=== PATIENT | male | born 1950 | race Caucasian/White ===

== ENCOUNTER 2020-01-28 16:04 | Emergency (ER) | payer MEDICARE ==
[2020-01-28 16:51] VITALS: BP 125/82; PULSE 90
[2020-01-28] MEDS ORDERED: Metoclopramide 10 MG/2 ML SDV IVPUSH ONE (16:56)
[2020-01-28] MEDS ORDERED: Dextrose 5%-0.9% NaCl 1,000 ML IV SCH (16:56)
--- NOTE | 2020-01-28 17:40 | EDM.PDOC ---
ED HPI GENERAL MEDICAL PROBLEM - General Chief Complaint: Respiratory Problem Stated Complaint: SORE THROAT,DIARRHEA,SOB,VOMITING Time Seen by Provider: 01/28/20 16:46 Source of Information: Reports: Patient, RN Notes Reviewed History Limitations: Reports: No Limitations - History of Present Illness INITIAL COMMENTS - FREE TEXT/NARRATIVE: Patient is a 69-year-old male who presents to the ED for evaluation of his multiple symptoms. Patient notes he has been sick for around 3 days now, he did go to a [facility] lab testing yesterday, and he is still awaiting his state results. He has sore throat, cough, shortness of breath, has had some diarrhea along with some nausea and vomiting. He states that he has lost his taste of sense or smell as well. He only vomited once today, and he states his diarrhea is very frequent and water life. He states he has not really had much of an appetite. He does complain of all over body aches. He has not had a fever at home, and O2 sats are 95% on room air, he has not tachypneic, temperature is 97.6 F, and his pulse rate is 90 bpm with a blood pressure of 125/82. He is not dizzy or lightheaded with positional change. His regular provider is Mariana Lee through the [facility]. Treatments YARN SPOOLER: Reports: Other (see below) Other Treatments YARN SPOOLER: none Generalized Pain Score (Numeric/FACES): 7 - Related Data Allergies Allergy/AdvReac Type Severity Reaction Status Date / Time niacin Allergy Itching Verified 06/02/15 10:05 [From Niaspan Extended-Release] Penicillins Allergy Hives Verified 06/02/15 10:05 tramadol Allergy Hives Verified 06/02/15 10:05 venom-honey bee Allergy Airway Verified 06/02/15 10:05 [bee venom (honey bee)] Tightness Home Meds: Home Meds Gabapentin [Neurontin] 300 mg PO TID 04/13/15 [History] Lisinopril 5 mg PO DAILY 04/13/15 [History] Pitavastatin [Livalo] 2 mg PO DAILY 04/13/15 [History] Ubidecarenone [Coq-10] 200 mg PO DAILY 04/13/15 [History] glyBURIDE [Glyburide] 2.5 mg PO DAILY 04/13/15 [History] Calcium Carb/D3/Magnesium/Zinc [Leonard Mag Zinc + D Tablet] 2 each PO DAILY 06/01/15 [History] Multivit-Minerals/FA/Lycopene [One Daily Men's Health Tablet] 2 each PO DAILY 06/01/15 [History] Zolpidem Tartrate [Ambien] 1 - 2 tab PO BEDTIME PRN 06/01/15 [History] Cyclobenzaprine [Flexeril] 10 mg PO Q8H PRN #40 tablet 06/02/15 [Rx] metFORMIN [Glucophage XR] 500 mg PO BID 01/28/20 [History] Past Medical History Other HEENT History: Loss of L labrynthine reactivity, 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, eye surgery Cardiovascular History: Reports: Heart Murmur, High Cholesterol Genitourinary History: Reports: Renal Calculus Other Genitourinary History: erectile dysfunction Musculoskeletal History: Reports: Osteoarthritis Other Musculoskeletal History: blunt trauma to thigh, osteoarthritis to bilat feet, 12 hand surgeries, bilateral 5th toe spur resections, L knee arthroscopy, multiple low back surgeries, rotator cuff repair Neurological History: Reports: Headaches, Chronic, Vertigo Other Neuro History: ataxia, insomnia, peripheral sensory neuropathy Endocrine/Metabolic History: Reports: Diabetes, Type II Hematologic History: Reports: Hemochromatosis - Past Surgical History GI Surgical History: Reports: Appendectomy, Colonoscopy, EGD Social & Family History - Tobacco Use Smoking Status *Q: Never Smoker - Caffeine Use Caffeine Use: Reports: Coffee, Tea - Recreational Drug Use Recreational Drug Use: No ED ROS GENERAL - Review of Systems Review Of Systems: Comprehensive ROS is negative, except as noted in HPI. ED EXAM, GENERAL - Physical Exam Exam: See Below Exam Limited By: No Limitations General Appearance: Alert, WD/WN, No Apparent Distress Respiratory/Chest: No Respiratory Distress, Lungs Clear, Normal Breath Sounds, No Accessory Muscle Use, Chest Non-Tender Cardiovascular: Normal Peripheral Pulses, Regular Rate, Rhythm, No Murmur GI/Abdominal: Normal Bowel Sounds, Soft, Non-Tender, No Distention, No Mass Extremities: Normal Inspection, Normal Capillary Refill Neurological: Alert, Oriented, Normal Cognition, No Motor/Sensory Deficits Psychiatric: Normal Affect, Normal Mood Skin Exam: Warm, Dry, Intact, Normal Color, No Rash EKG INTERPRETATION EKG Date: 01/28/20 Time: 17:15 Rhythm: NSR Rate (Beats/Min): 86 [place]: Normal P-Wave: Present QRS: Normal ST-T: Normal QT: Normal EKG Interpretation Comments: No obvious ischemia or acute ST changes noted, reviewed by myself and Dr. oRwland. Course - Vital Signs Last Recorded V/S: Last Vital Signs Temp 97.6 F 01/28/20 16:50 Pulse 90 01/28/20 16:50 Resp 20 01/28/20 16:50 BP 125/82 01/28/20 16:50 Pulse Ox 95 01/28/20 16:50 - Orders/Labs/Meds Orders: Active Orders 24 hr Category Date Time Status EKG Documentation Completion [RC] STAT Care 01/28/20 16:55 Ordered Chest 1V Frontal [CR] Stat Exams 01/28/20 16:55 Once Dextrose 5%-0.9% NaCl [Dextrose 5%-Normal Saline] 1,000 Med 01/28/20 16:56 Ordered ml IV ASDIRECTED Medication Orders Dextrose/Sodium Chloride (Dextrose 5%-Normal Saline) 1,000 mls @ 999 mls/hr IV ASDIRECTED JANE Last Admin: 01/28/20 17:41 Dose: 999 mls/hr Documented by: ARTHUR Labs: Laboratory Tests 01/28/20 01/28/20 01/28/20 Range/Units 17:28 17:28 17:28 WBC 4.17 L (4.23-9.07) K/mm3 RBC 3.68 L (4.63-6.08) M/mm3 Hgb 11.2 L D (13.7-17.5) gm/dl Hct 32.7 L (40.1-51.0) % MCV 88.9 (79.0-92.2) fl MCH 30.4 (25.7-32.2) pg MCHC 34.3 (32.2-35.5) g/dl RDW Std Deviation 40.5 (35.1-43.9) fL Plt Count 192 (163-337) K/mm3 MPV 10.2 (9.4-12.3) fl Neutrophils % (Manual) 53 (40-60) % Band Neutrophils % 2 (0-10) % Lymphocytes % (Manual) 40 (20-40) % Atypical Lymphs % 0 % Monocytes % (Manual) 4 (2-10) % Eosinophils % (Manual) 1 (0.8-7.0) % Basophils % (Manual) 0 L (0.2-1.2) Platelet Estimate Adequate RBC Morph Comment Normal PT 10.7 (9.7-11.7) SECONDS INR 1.00 APTT 32 H (22-31) SECONDS D-Dimer, Quantitative 0.86 H (0.19-0.50) mg/L Sodium (136-145) mEq/L Potassium (3.5-5.1) mEq/L Chloride (98-107) mEq/L Carbon Dioxide (21-32) mEq/L Anion Gap (5-15) BUN (7-18) mg/dL Creatinine (0.7-1.3) mg/dL Est Cr Clr Drug Dosing mL/min Estimated GFR (MDRD) (>60) mL/min BUN/Creatinine Ratio (14-18) Glucose (80-115) mg/dL Lactic Acid (0.4-2.0) mmol/L Calcium (8.5-10.1) mg/dL Magnesium (1.8-2.4) mg/dl Ferritin (26-388) ng/ml Total Bilirubin (0.2-1.0) mg/dL AST (15-37) U/L ALT (16-63) U/L Alkaline Phosphatase (46-116) U/L Lactate Dehydrogenase (85-227) U/L Troponin I (0.00-0.056) ng/mL C-Reactive Protein 9.5 H* (<1.0) mg/dL NT-Pro-B Natriuret Pep (0-125) pg/mL Total Protein (6.4-8.2) g/dl Albumin (3.4-5.0) g/dl Globulin gm/dL Albumin/Globulin Ratio (1-2) 01/28/20 01/28/20 01/28/20 Range/Units 17:28 17:28 17:28 WBC (4.23-9.07) K/mm3 RBC (4.63-6.08) M/mm3 Hgb (13.7-17.5) gm/dl Hct (40.1-51.0) % MCV (79.0-92.2) fl MCH (25.7-32.2) pg MCHC (32.2-35.5) g/dl RDW Std Deviation (35.1-43.9) fL Plt Count (163-337) K/mm3 MPV (9.4-12.3) fl Neutrophils % (Manual) (40-60) % Band Neutrophils % (0-10) % Lymphocytes % (Manual) (20-40) % Atypical Lymphs % % Monocytes % (Manual) (2-10) % Eosinophils % (Manual) (0.8-7.0) % Basophils % (Manual) (0.2-1.2) Platelet Estimate RBC Morph Comment PT (9.7-11.7) SECONDS INR APTT (22-31) SECONDS D-Dimer, Quantitative (0.19-0.50) mg/L Sodium 137 (136-145) mEq/L Potassium 3.2 L (3.5-5.1) mEq/L Chloride 102 (98-107) mEq/L Carbon Dioxide 20 L (21-32) mEq/L Anion Gap 18.2 H (5-15) BUN 18 (7-18) mg/dL Creatinine 1.6 H (0.7-1.3) mg/dL Est Cr Clr Drug Dosing 49.17 mL/min Estimated GFR (MDRD) 43 (>60) mL/min BUN/Creatinine Ratio 11.3 L (14-18) Glucose 239 H (80-115) mg/dL Lactic Acid (0.4-2.0) mmol/L Calcium 8.6 (8.5-10.1) mg/dL Magnesium 1.5 L (1.8-2.4) mg/dl Ferritin 561 H (26-388) ng/ml Total Bilirubin 0.5 (0.2-1.0) mg/dL AST 98 H (15-37) U/L ALT 96 H (16-63) U/L Alkaline Phosphatase 80 (46-116) U/L Lactate Dehydrogenase 220 (85-227) U/L Troponin I < 0.017 (0.00-0.056) ng/mL C-Reactive Protein (<1.0) mg/dL NT-Pro-B Natriuret Pep 134 H (0-125) pg/mL Total Protein 7.4 (6.4-8.2) g/dl Albumin 3.1 L (3.4-5.0) g/dl Globulin 4.3 gm/dL Albumin/Globulin Ratio 0.7 L (1-2) 01/28/20 Range/Units 17:28 WBC (4.23-9.07) K/mm3 RBC (4.63-6.08) M/mm3 Hgb (13.7-17.5) gm/dl Hct (40.1-51.0) % MCV (79.0-92.2) fl MCH (25.7-32.2) pg MCHC (32.2-35.5) g/dl RDW Std Deviation (35.1-43.9) fL Plt Count (163-337) K/mm3 MPV (9.4-12.3) fl Neutrophils % (Manual) (40-60) % Band Neutrophils % (0-10) % Lymphocytes % (Manual) (20-40) % Atypical Lymphs % % Monocytes % (Manual) (2-10) % Eosinophils % (Manual) (0.8-7.0) % Basophils % (Manual) (0.2-1.2) Platelet Estimate RBC Morph Comment PT (9.7-11.7) SECONDS INR APTT (22-31) SECONDS D-Dimer, Quantitative (0.19-0.50) mg/L Sodium (136-145) mEq/L Potassium (3.5-5.1) mEq/L Chloride (98-107) mEq/L Carbon Dioxide (21-32) mEq/L Anion Gap (5-15) BUN (7-18) mg/dL Creatinine (0.7-1.3) mg/dL Est Cr Clr Drug Dosing mL/min Estimated GFR (MDRD) (>60) mL/min BUN/Creatinine Ratio (14-18) Glucose (80-115) mg/dL Lactic Acid 1.4 (0.4-2.0) mmol/L Calcium (8.5-10.1) mg/dL Magnesium (1.8-2.4) mg/dl Ferritin (26-388) ng/ml Total Bilirubin (0.2-1.0) mg/dL AST (15-37) U/L ALT (16-63) U/L Alkaline Phosphatase (46-116) U/L Lactate Dehydrogenase (85-227) U/L Troponin I (0.00-0.056) ng/mL C-Reactive Protein (<1.0) mg/dL NT-Pro-B Natriuret Pep (0-125) pg/mL Total Protein (6.4-8.2) g/dl Albumin (3.4-5.0) g/dl Globulin gm/dL Albumin/Globulin Ratio (1-2) Meds: Medications Generic Name Dose Route Start Last Admin Trade Name Freq PRN Reason Stop Dose Admin Dextrose/Sodium Chloride 1,000 mls @ 999 mls/hr 01/28/20 16:56 01/28/20 17:41 Dextrose 5%-Normal Saline IV 999 mls/hr ASDIRECTED JANE Administration Discontinued Medications Generic Name Dose Route Start Last Admin Trade Name Freq PRN Reason Stop Dose Admin Metoclopramide HCl 10 mg 01/28/20 16:56 01/28/20 17:41 Reglan IVPUSH 01/28/20 16:57 10 mg ONETIME ONE Administration Potassium Chloride 40 meq 01/28/20 18:43 Klor-Con M20 PO 01/28/20 18:44 ONETIME ONE - Re-Assessments/Exams Free Text/Narrative Re-Assessment/Exam: 01/28/20 17:39 Patient presents to the ED for his COVID-like symptoms. His chest x-ray does demonstrate bibasilar consolidation, consistent with atelectasis, edema or pneumonia, and a small left pleural effusion. Due to his symptoms, I do highly suspect that this is the start of a COVID pneumonia. O2 sats are okay at this time on room air 95%. Labs are pending. EKG shows no acute ischemic changes. 01/28/20 18:44 Patient's white blood cell count is mildly low at 4.17, d-dimer is elevated at 0.86, potassium is mildly low at 3.2, creatinine elevated 1.6, GFR 43, glucose is mildly elevated at 239, lactic okay at 1.4 ferritin elevated at 516, mag low at 1.5, LDH elevated at 220, troponin undetectably low, CRP is elevated at 9.5. Based on these labs, I do again highly suspect COVID-19 as being what this gentleman is suffering from. Due to his diabetic status, elevated creatinine and GFR, I will not do the CTA today, he is not hypoxic, he is not tachycardic. The d-dimer is most likely elevated due to suspected COVID-19 infection. He will get 40 mEq p.o. potassium for his mildly low potassium at this time. Most of his metabolic abnormalities I believe are nutritional as he states he has lost a sense of taste or smell, so is not really been eating well. Departure - Departure Time of Disposition: 18:59 Disposition: Home, Self-Care 01 Condition: Good Clinical Impression: COVID-19 determined by clinical diagnostic criteria - Discharge Information *PRESCRIPTION DRUG MONITORING PROGRAM REVIEWED*: No *COPY OF PRESCRIPTION DRUG MONITORING REPORT IN PATIENT CONY: No Instructions: COVID-19: How to Protect Yourself and Others - [facility], Prevent the Spread of COVID-19 if You Are Sick - [facility] Referrals: Marilia Lee PA-C [Primary Care Provider] - Forms: ED Department Discharge Additional Instructions: You were seen in the ER today for ongoing and/or respiratory symptoms. Your chest x-ray showed a slight viral pneumonia at today's visit. Your oxygen levels were acceptable at 95-96% on room air. Please await your results from the [facility]; although you have been given a clinical diagnosis of COVID-19 by lab standards and your chest x-ray. We ask that you self-quarantine and limit your exposure to others until you receive your results from the [facility]. Please try to increase your oral fluid intake, and eat multiple small meals throughout the day, to keep yourself healthy. You need to keep yourself nourished in order to fight off this disease. You can try a liquid diet like gatorade/powerade as well to get your electrolytes. You may take 500 mg Tylenol every hours 6 hours for pain/fever relief. Do not exceed 4000 mg Tylenol in a 24-hour time span. However, running a fever is your body's natural response to illness, and it allows the body to develop antibodies to disease, we are recommending trying to limit the use of Tylenol as much as possible to allow your body's natural immune response. Recommend you obtain a pulse oximeter and monitor your oxygen levels at home, you should place the monitor on your finger, and sit in a calm quiet position for a few minutes and then record the number that is on the screen. If this consistently below 90% on room air without movement, this would be cause for concern to come back to the hospital for further management of your COVID-19. Sepsis Event Note (ED) - Evaluation Sepsis Screening Result: No Definite Risk - Focused Exam Vital Signs: Vital Signs Temp Pulse Resp BP Pulse Ox 01/28/20 16:50 97.6 F 90 20 125/82 95 - My Orders Last 24 Hours: My Active Orders 01/28/20 16:55 EKG Documentation Completion [RC] STAT Chest 1V Frontal [CR] Stat 01/28/20 16:56 Dextrose 5%-0.9% NaCl [Dextrose 5%-Normal Saline] 1,000 ml IV ASDIRECTED - Assessment/Plan Last 24 Hours: My Active Orders 01/28/20 16:55 EKG Documentation Completion [RC] STAT Chest 1V Frontal [CR] Stat 01/28/20 16:56 Dextrose 5%-0.9% NaCl [Dextrose 5%-Normal Saline] 1,000 ml IV ASDIRECTED
[2020-01-28] MEDS ORDERED: Potassium Chloride 20 MEQ Tab.ER PO ONE (18:43)
== END 2020-01-28 19:30 | disposition home or self-care (01) ==
LOC: JD.ED 16:04
DX: U07.1 COVID-19 (principal); E11.42 Type 2 diabetes mellitus with diabetic polyneuropathy; E78.00 Pure hypercholesterolemia, unspecified; Z88.8 Allergy status to other drugs, medicaments and biological substances; Z88.5 Allergy status to narcotic agent; Z88.0 Allergy status to penicillin; Z79.84 Long term (current) use of oral hypoglycemic drugs; Z79.899 Other long term (current) drug therapy; Z91.030 Bee allergy status
CPT/HCPCS: 36415; 71045; 80053; 82728; 83605; 83615; 83735; 83880; 84484; 85007; 85027; 85379; 85610; 85730; 86140; 93005; 96361; 96374; 99285; A9270; J2765; J7042; 93010; 99283

== ENCOUNTER 2020-02-01 11:47 | Emergency (ER) | payer MEDICARE ==
[2020-02-01] MEDS ORDERED: Sodium Chloride 0.9% 10 ML Syringe FLUSH PRN ×2 (12:23→15:03)
[2020-02-01] MEDS ORDERED: Ondansetron 4 MG/2 ML SDV IVPUSH ONE (12:25)
[2020-02-01] MEDS ORDERED: Iopamidol 755 Mg/ML 100 ML Bottle IVPUSH ONE (15:03)
--- NOTE | 2020-02-01 15:05 | EDM.PDOC ---
ED HPI GENERAL MEDICAL PROBLEM - General Chief Complaint: Respiratory Problem Stated Complaint: [facility] Time Seen by Provider: 02/01/20 11:55 Source of Information: Reports: Patient, EMS History Limitations: Reports: No Limitations - History of Present Illness INITIAL COMMENTS - FREE TEXT/NARRATIVE: The patient presents by [facility] for shortness of breath, cough, nausea, vomiting and diarrhea. He is COVID 19 positive as of last week. He was seen in the ER 4 days ago and he was doing okay then with good oxygen saturations. When he went home, he developed the nausea, vomiting and diarrhea. He says he cannot keep anything down. He has a slight cough still. He has no fever, chills, chest pain, or dysuria. He has diabetes type II, hypercholester olemia, and heart murmur. Onset: Gradual Duration: Week(s): (1) Improves with: Reports: None Worsens with: Reports: None Associated Symptoms: Reports: Cough, Nausea/Vomiting, Shortness of Breath. Denies: Chest Pain, Fever/Chills, Headaches - Related Data Allergies Allergy/AdvReac Type Severity Reaction Status Date / Time niacin Allergy Itching Verified 02/01/20 11:59 [From Niaspan Extended-Release] Penicillins Allergy Hives Verified 02/01/20 11:59 tramadol Allergy Hives Verified 02/01/20 11:59 venom-honey bee Allergy Airway Verified 02/01/20 11:59 [bee venom (honey bee)] Tightness Home Meds: Home Meds Gabapentin [Neurontin] 600 mg PO TID 04/13/15 [History] Lisinopril 5 mg PO DAILY 04/13/15 [History] Pitavastatin [Livalo] 2 mg PO DAILY 04/13/15 [History] Ubidecarenone [Coq-10] 200 mg PO DAILY 04/13/15 [History] glyBURIDE [Glyburide] 2.5 mg PO DAILY 04/13/15 [History] Calcium Carb/D3/Magnesium/Zinc [Leonard Mag Zinc + D Tablet] 2 each PO DAILY 06/01/15 [History] Multivit-Minerals/FA/Lycopene [One Daily Men's Health Tablet] 2 each PO DAILY 06/01/15 [History] Zolpidem Tartrate [Ambien] 1 - 2 tab PO BEDTIME PRN 06/01/15 [History] Cyclobenzaprine [Flexeril] 10 mg PO Q8H PRN #40 tablet 06/02/15 [Rx] metFORMIN [Glucophage XR] 500 mg PO BID 01/28/20 [History] Ondansetron [Zofran ODT] 4 mg PO Q6H PRN #20 tab.dis 02/01/20 [Rx] dexAMETHasone [Dexamethasone] 6 mg PO DAILY #7 tab 02/01/20 [Rx] Past Medical History Other HEENT History: Loss of L labrynthine reactivity, 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, eye surgery Cardiovascular History: Reports: Heart Murmur, High Cholesterol Genitourinary History: Reports: Renal Calculus Other Genitourinary History: erectile dysfunction Musculoskeletal History: Reports: Osteoarthritis Other Musculoskeletal History: blunt trauma to thigh, osteoarthritis to bilat feet, 12 hand surgeries, bilateral 5th toe spur resections, L knee arthroscopy, multiple low back surgeries, rotator cuff repair Neurological History: Reports: Headaches, Chronic, Vertigo Other Neuro History: ataxia, insomnia, peripheral sensory neuropathy Endocrine/Metabolic History: Reports: Diabetes, Type II Hematologic History: Reports: Hemochromatosis - Infectious Disease History Infectious Disease History: Reports: Novel Coronavirus - Past Surgical History GI Surgical History: Reports: Appendectomy, Colonoscopy, EGD Social & Family History - Tobacco Use Smoking Status *Q: Never Smoker - Caffeine Use Caffeine Use: Reports: Coffee, Tea - Recreational Drug Use Recreational Drug Use: No ED ROS GENERAL - Review of Systems Review Of Systems: See Below Constitutional: Reports: Malaise, Weakness, Fatigue. Denies: Fever, Chills HEENT: Reports: No Symptoms Respiratory: Reports: Shortness of Breath, Cough Cardiovascular: Reports: No Symptoms Endocrine: Reports: No Symptoms GI/Abdominal: Reports: Diarrhea, Nausea, Vomiting. Denies: Abdominal Pain ED EXAM, GENERAL - Physical Exam Exam: See Below Exam Limited By: No Limitations General Appearance: Alert, No Apparent Distress Ears: Normal External Exam Nose: Normal Inspection Head: Atraumatic, Normocephalic Neck: Normal Inspection Respiratory/Chest: No Respiratory Distress, Lungs Clear, Normal Breath Sounds Cardiovascular: Regular Rate, Rhythm, No Edema, No Murmur GI/Abdominal: Soft, Non-Tender, No Organomegaly, No Mass Back Exam: Normal Inspection Extremities: Normal Inspection Neurological: Alert, Oriented, No Motor/Sensory Deficits Course - Vital Signs Last Recorded V/S: Last Vital Signs Temp 98.2 F 02/01/20 11:55 Pulse 54 L 02/01/20 15:51 Resp 20 02/01/20 15:51 BP 118/71 02/01/20 15:51 Pulse Ox 98 02/01/20 15:51 - Orders/Labs/Meds Orders: Active Orders 24 hr Category Date Time Status Oxygen Therapy [RC] PRN Care 02/01/20 12:23 Active Peripheral IV Care [RC] . DIRECTED Care 02/01/20 12:24 Active Ang Chest [CT] Stat Exams 02/01/20 14:53 Taken CXR [Chest 1V Frontal] [CR] Stat Exams 02/01/20 12:25 Taken CULTURE BLOOD [BC] Stat Lab 02/01/20 12:46 Received CULTURE BLOOD [BC] Stat Lab 02/01/20 13:00 Received Sodium Chloride 0.9% [Normal Saline] 100 ml Med 02/01/20 15:15 Active IV ASDIRECTED Sodium Chloride 0.9% [Saline Flush] Med 02/01/20 12:23 Active 10 ml FLUSH ASDIRECTED PRN Sodium Chloride 0.9% [Saline Flush] Med 02/01/20 15:03 Active 10 ml FLUSH ONETIME PRN Blood Culture x2 Reflex Set [OM.PC] Stat Oth 02/01/20 12:24 Ordered Peripheral IV Insertion Adult [OM.PC] Stat Oth 02/01/20 12:23 Ordered Medication Orders Sodium Chloride (Normal Saline) 100 mls @ 75 mls/hr IV ASDIRECTED JANE Last Admin: 02/01/20 15:34 Dose: 75 mls/hr Documented by: ANDREA Sodium Chloride (Saline Flush) 10 ml FLUSH ASDIRECTED PRN PRN Reason: Keep Vein Open Last Admin: 02/01/20 12:51 Dose: 10 ml Documented by: HEIDI Sodium Chloride (Saline Flush) 10 ml FLUSH ONETIME PRN PRN Reason: IV FLUSH Last Admin: 02/01/20 15:34 Dose: 10 ml Documented by: ANDREA Labs: Laboratory Tests 02/01/20 02/01/20 02/01/20 Range/Units 12:46 12:46 12:46 WBC 5.56 (4.23-9.07) K/mm3 RBC 3.86 L (4.63-6.08) M/mm3 Hgb 11.9 L (13.7-17.5) gm/dl Hct 33.9 L (40.1-51.0) % MCV 87.8 (79.0-92.2) fl MCH 30.8 (25.7-32.2) pg MCHC 35.1 (32.2-35.5) g/dl RDW Std Deviation 40.6 (35.1-43.9) fL Plt Count 285 D (163-337) K/mm3 MPV 9.7 (9.4-12.3) fl Neut % (Auto) 68.1 H (34.0-67.9) % Lymph % (Auto) 21.8 (21.8-53.1) % Collier % (Auto) 7.2 (5.3-12.2) % Eos % (Auto) 2.0 (0.8-7.0) Baso % (Auto) 0.4 (0.1-1.2) % Neut # (Auto) 3.79 (1.78-5.38) K/mm3 Lymph # (Auto) 1.21 L (1.32-3.57) K/mm3 Collier # (Auto) 0.40 (0.30-0.82) K/mm3 Eos # (Auto) 0.11 (0.04-0.54) K/mm3 Baso # (Auto) 0.02 (0.01-0.08) K/mm3 Manual Slide Review Abnormal smear D-Dimer, Quantitative 1.51 H (0.19-0.50) mg/L Sodium 139 (136-145) mEq/L Potassium 3.0 L (3.5-5.1) mEq/L Chloride 103 (98-107) mEq/L Carbon Dioxide 23 (21-32) mEq/L Anion Gap 16.0 H (5-15) BUN 25 H (7-18) mg/dL Creatinine 1.2 (0.7-1.3) mg/dL Est Cr Clr Drug Dosing 65.56 mL/min Estimated GFR (MDRD) > 60 (>60) mL/min BUN/Creatinine Ratio 20.8 H (14-18) Glucose 250 H (80-115) mg/dL Lactic Acid (0.4-2.0) mmol/L Calcium 9.0 (8.5-10.1) mg/dL Magnesium 2.0 (1.8-2.4) mg/dl Ferritin (26-388) ng/ml Total Bilirubin 0.7 (0.2-1.0) mg/dL AST 90 H (15-37) U/L ALT 96 H (16-63) U/L Alkaline Phosphatase 90 (46-116) U/L Lactate Dehydrogenase 301 H (85-227) U/L Total Protein 8.0 (6.4-8.2) g/dl Albumin 3.0 L (3.4-5.0) g/dl Globulin 5.0 gm/dL Albumin/Globulin Ratio 0.6 L (1-2) Lipase 269 (73-393) U/L 02/01/20 02/01/20 Range/Units 12:46 12:46 WBC (4.23-9.07) K/mm3 RBC (4.63-6.08) M/mm3 Hgb (13.7-17.5) gm/dl Hct (40.1-51.0) % MCV (79.0-92.2) fl MCH (25.7-32.2) pg MCHC (32.2-35.5) g/dl RDW Std Deviation (35.1-43.9) fL Plt Count (163-337) K/mm3 MPV (9.4-12.3) fl Neut % (Auto) (34.0-67.9) % Lymph % (Auto) (21.8-53.1) % Collier % (Auto) (5.3-12.2) % Eos % (Auto) (0.8-7.0) Baso % (Auto) (0.1-1.2) % Neut # (Auto) (1.78-5.38) K/mm3 Lymph # (Auto) (1.32-3.57) K/mm3 Collier # (Auto) (0.30-0.82) K/mm3 Eos # (Auto) (0.04-0.54) K/mm3 Baso # (Auto) (0.01-0.08) K/mm3 Manual Slide Review D-Dimer, Quantitative (0.19-0.50) mg/L Sodium (136-145) mEq/L Potassium (3.5-5.1) mEq/L Chloride (98-107) mEq/L Carbon Dioxide (21-32) mEq/L Anion Gap (5-15) BUN (7-18) mg/dL Creatinine (0.7-1.3) mg/dL Est Cr Clr Drug Dosing mL/min Estimated GFR (MDRD) (>60) mL/min BUN/Creatinine Ratio (14-18) Glucose (80-115) mg/dL Lactic Acid 1.2 (0.4-2.0) mmol/L Calcium (8.5-10.1) mg/dL Magnesium (1.8-2.4) mg/dl Ferritin 872 H (26-388) ng/ml Total Bilirubin (0.2-1.0) mg/dL AST (15-37) U/L ALT (16-63) U/L Alkaline Phosphatase (46-116) U/L Lactate Dehydrogenase (85-227) U/L Total Protein (6.4-8.2) g/dl Albumin (3.4-5.0) g/dl Globulin gm/dL Albumin/Globulin Ratio (1-2) Lipase (73-393) U/L Meds: Medications Generic Name Dose Route Start Last Admin Trade Name Freq PRN Reason Stop Dose Admin Sodium Chloride 100 mls @ 75 mls/hr 02/01/20 15:15 02/01/20 15:34 Normal Saline IV 75 mls/hr ASDIRECTED JANE Administration Sodium Chloride 10 ml 02/01/20 12:23 02/01/20 12:51 Saline Flush FLUSH 10 ml ASDIRECTED PRN Administration Keep Vein Open Sodium Chloride 10 ml 02/01/20 15:03 02/01/20 15:34 Saline Flush FLUSH 10 ml ONETIME PRN Administration IV FLUSH Discontinued Medications Generic Name Dose Route Start Last Admin Trade Name Freq PRN Reason Stop Dose Admin Iopamidol 100 ml 02/01/20 15:03 02/01/20 15:33 Isovue-370 (76%) IVPUSH 02/01/20 15:04 100 ml ONETIME ONE Administration Ondansetron HCl 4 mg 02/01/20 12:25 02/01/20 12:52 Zofran IVPUSH 02/01/20 12:26 4 mg ONETIME ONE Administration - Re-Assessments/Exams Free Text/Narrative Re-Assessment/Exam: 02/01/20 15:06 I ordered an IV NS 1L bolus, zofran 4mg IV, labs, CXR and oxygen as needed. His WBC was normal. His Hgb was low at 11.9. His D-dimer is elevated at 1.51. His K is low at 3. His anion gap is elevated at 16. His glucose is 250. His lactic acid is normal at 1.2. His ferritin is elevated at 872. His AST is elevated at 90. His ALT is elevated at 94. His LDH is elevated at 301. His lipase is normal. His CXR shows worsening of bilateral pneumonia. 02/01/20 15:08 [address] have ordered a CT angio fo his chest. 02/01/20 16:[address] angio shows no pulmonary embolism present. Patchy peripheral airspace opacity concerning for multilobar pneumonia. Consider atypical/viral etiologies. Mild cardiomegaly and coronary atherosclerosis. Prominent bilateral hilar lymph nodes. These are likely reactive to the pulmonary process. Not mentioned avoce is a 0.4 X 0.3cm stone in the upper pole of the right kidney. No hydronephrosis is present. His oxygen saturations are good. He does not meet criteria at this point to be admitted. I will get him on some zofran for the nausea and vomiting and I will try some dexamethasone at home. Departure - Departure Time of Disposition: 16:20 Disposition: Home, Self-Care 01 Condition: Good Clinical Impression: COVID-19, Pneumonia due to COVID-19 virus - Discharge Information *PRESCRIPTION DRUG MONITORING PROGRAM REVIEWED*: Not Applicable *COPY OF PRESCRIPTION DRUG MONITORING REPORT IN PATIENT [place]: Not Applicable Prescriptions: dexAMETHasone [Dexamethasone] 6 mg PO DAILY #7 tab Ondansetron [Zofran ODT] 4 mg PO Q6H PRN #20 tab.dis PRN Reason: Nausea\vomiting Referrals: Marilia Lee PA-C [Primary Care Provider] - 1 Week Forms: ED Department Discharge Additional Instructions: Take zofran every 6 hours as needed for nausea and vomiting. Drink plenty of fluids. Take tylenol or motrin as needed for fever or pain. Take the dexamethasone daily. Please return if you are worse. Sepsis Event Note (ED) - Evaluation Sepsis Screening Result: No Definite Risk - Focused Exam Vital Signs: Vital Signs Temp Pulse Resp BP Pulse Ox Pulse Ox 02/01/20 15:51 54 L 20 118/71 98 02/01/20 12:31 96 02/01/20 11:55 98.2 F 60 18 125/85 96 - My Orders Last 24 Hours: My Active Orders 02/01/20 12:23 Oxygen Therapy [RC] PRN Sodium Chloride 0.9% [Saline Flush] 10 ml FLUSH ASDIRECTED PRN Peripheral IV Insertion Adult [OM.PC] Stat 02/01/20 12:24 Peripheral IV Care [RC] . DIRECTED Blood Culture x2 Reflex Set [OM.PC] Stat 02/01/20 12:25 CXR [Chest 1V Frontal] [CR] Stat 02/01/20 12:46 CULTURE BLOOD [BC] Stat 02/01/20 13:00 CULTURE BLOOD [BC] Stat 02/01/20 14:53 Ang Chest [CT] Stat 02/01/20 15:03 Sodium Chloride 0.9% [Saline Flush] 10 ml FLUSH ONETIME PRN 02/01/20 15:15 Sodium Chloride 0.9% [Normal Saline] 100 ml IV ASDIRECTED - Assessment/Plan Last 24 Hours: My Active Orders 02/01/20 12:23 Oxygen Therapy [RC] PRN Sodium Chloride 0.9% [Saline Flush] 10 ml FLUSH ASDIRECTED PRN Peripheral IV Insertion Adult [OM.PC] Stat 02/01/20 12:24 Peripheral IV Care [RC] . DIRECTED Blood Culture x2 Reflex Set [OM.PC] Stat 02/01/20 12:25 CXR [Chest 1V Frontal] [CR] Stat 02/01/20 12:46 CULTURE BLOOD [BC] Stat 02/01/20 13:00 CULTURE BLOOD [BC] Stat 02/01/20 14:53 Ang Chest [CT] Stat 02/01/20 15:03 Sodium Chloride 0.9% [Saline Flush] 10 ml FLUSH ONETIME PRN 02/01/20 15:15 Sodium Chloride 0.9% [Normal Saline] 100 ml IV ASDIRECTED
[2020-02-01] MEDS ORDERED: Sodium Chloride 0.9% 100 ML IV SCH (15:15)
[2020-02-01 15:52] VITALS: BP 118/71; PULSE 54
--- NOTE | 2020-03-02 10:39 | CR ---
PROCEDURE INFORMATION: Exam: XR Chest, 1 View Exam date and time: 02/01/2020 12:48 PM Age: 69 years old Clinical indication: Condition or disease; Patient HX: Covid, cough TECHNIQUE: Imaging protocol: XR of the chest Views: 1 view. COMPARISON: CR Chest 1V Frontal 01/28/2020 4:43 PM FINDINGS: Lungs: Bilateral ill-defined pulmonary opacities are present with a peripheral and basilar predominance. This would be compatible with the history of COVID-19. These opacities have worsened in the interval. Pleural space: No pleural effusion or pneumothorax. Heart/Mediastinum: The cardiac silhouette is not enlarged. The mediastinal contours are normal. Bones/joints: Old, healed right rib fractures. Fixation plate at the posterior right 6th rib. There are multilevel bridging osteophytes in the spine. IMPRESSION: Worsening of bilateral pneumonia. COMMENTS: The exam was performed on 02/01/2020 but only presented for FINAL interpretation today. Thank you for allowing us to participate in the care of your patient. Dictated and Authenticated by: Gareth Jones MD 03/01/2020 8:18 AM Central Time ([place] & [place]) RAJAT
--- NOTE | 2020-03-03 15:22 | CT ---
"PROCEDURE INFORMATION: Exam: CT Angiography Chest With Contrast Exam date and time: 02/01/2020 3:08 PM Age: 69 years old Clinical indication: Abnormal findings; Abnormal diagnostic tests; Elevated d- dimer TECHNIQUE: Imaging protocol: Computed tomographic angiography of the chest with intravenous contrast. 3D rendering (Not supervised by radiologist): MIP and/or 3D reconstructed images were created by the technologist. COMPARISON: CR Chest 1V Frontal 02/01/2020 12:48 PM FINDINGS: Pulmonary arteries: No evidence of pulmonary embolism. Aorta: No evidence of aortic dissection. Lungs: Diffuse patchy airspace opacities noted throughout the lungs bilaterally. Pleural space: Unremarkable. No pneumothorax. No pleural effusion. Heart: The heart demonstrates mild diffuse enlargement. There is mild atherosclerotic calcification of the coronary arteries. Lymph nodes: Prominent bilateral hilar lymph nodes are noted. Kidneys and ureters: Small nonobstructing calcifications present within the left kidney measuring up to 2 mm. A 4 mm calcification is noted within the upper pole of the right kidney. No obstructive uropathy. Bones/joints: Unremarkable. No acute fracture. Soft tissues: Unremarkable. IMPRESSION: 1. No evidence of pulmonary embolism. 2. No evidence of aortic dissection. TAMIKO LOZANO | Final Radiology Report CONFIDENTIALITY STATEMENT This report is intended only for use by the referring physician, and only in accordance with law. If you received this in error, call [phone]. Page 2 of 2 3. Diffuse patchy airspace opacities noted throughout the lungs bilaterally. Findings consistent with edema, viral or atypical pneumonia. Other etiologies are not excluded. 4. A 4 mm calcification is noted within the upper pole of the right kidney. No obstructive uropathy. COMMENTS: Examination performed on 02/01/2020 and presented for final interpretation today. Thank you for allowing us to participate in the care of your patient. Dictated and Authenticated by: Dwayne Gregory DO 03/03/2020 4:18 PM Central Time ([place] & [place]) RAJAT"
== END 2020-02-01 16:58 | disposition home or self-care (01) ==
LOC: JD.ED 11:47
DX: U07.1 COVID-19 (principal); J12.89 Other viral pneumonia; E78.00 Pure hypercholesterolemia, unspecified; E11.42 Type 2 diabetes mellitus with diabetic polyneuropathy; R79.1 Abnormal coagulation profile; R74.02 Elevation of levels of lactic acid dehydrogenase [LDH]; R79.89 Other specified abnormal findings of blood chemistry; Z88.1 Allergy status to other antibiotic agents; Z88.0 Allergy status to penicillin; Z88.5 Allergy status to narcotic agent; Z91.030 Bee allergy status; Z90.49 Acquired absence of other specified parts of digestive tract; Z79.84 Long term (current) use of oral hypoglycemic drugs; Z79.899 Other long term (current) drug therapy
CPT/HCPCS: 36415; 71045; 71275; 80053; 82728; 83605; 83615; 83690; 83735; 85025; 85379; 87040; 94762; 96361; 96374; 99285; J2405; J7050; Q9967; 87077; 99284

== ENCOUNTER 2024-04-23 15:23 | Day surgery (SDC) | payer MEDICARE, OTHER ==
[2024-04-23] MEDS: Sodium Chloride 0.9% 10 ML Syringe FLUSH PRN (16:22)
[2024-04-23] MEDS: Glucagon,Human Recombinant 1 MG Vial IVPUSH ONE (16:22)
[2024-04-23] MEDS: LORazepam 2 MG/ML SDV IVPUSH ONE (16:22)
[2024-04-23 17:52] VITALS: BP 136/96; PULSE 72
== END 2024-04-24 ==
LOC: JD.ED 15:23 → JD.SDS 04-24 17:10
PROVIDERS: ATTEND Surgery
DX: T18.108A Unspecified foreign body in esophagus causing other injury, initial encounter (principal); I10 Essential (primary) hypertension; E11.9 Type 2 diabetes mellitus without complications; E78.00 Pure hypercholesterolemia, unspecified; Z79.84 Long term (current) use of oral hypoglycemic drugs; Z79.899 Other long term (current) drug therapy; Z91.030 Bee allergy status; Z88.8 Allergy status to other drugs, medicaments and biological substances; Z88.0 Allergy status to penicillin; W44.8XXA Other foreign body entering into or through a natural orifice, initial encounter
CPT/HCPCS: 96374; 96375; 99283; J1610; J2060

== ENCOUNTER 2024-04-24 07:58 | Day surgery (SDC) | payer MEDICARE, OTHER ==
[2024-04-24] MEDS ORDERED: Sodium Chloride 0.9% 10 ML Syringe FLUSH PRN (08:28)
[2024-04-24] MEDS ORDERED: Propofol 200 MG/20 ML SDV ONE (11:40)
[2024-04-24] MEDS ORDERED: Lidocaine 1% 4 ML ONE (11:40)
[2024-04-24] MEDS ORDERED: Lactated Ringers 1,000 ML ONE (12:21)
[2024-04-24 13:39] VITALS: BP 136/96; PULSE 75
== END 2024-04-24 13:25 | disposition home or self-care (01) ==
LOC: JD.ED 07:58 → JD.SDS 12:00 → JD.ED 12:05 → JD.SDS 13:25
PROVIDERS: ATTEND Surgery
DX: T18.108A Unspecified foreign body in esophagus causing other injury, initial encounter (principal); I10 Essential (primary) hypertension; E11.9 Type 2 diabetes mellitus without complications; E78.00 Pure hypercholesterolemia, unspecified; Z79.4 Long term (current) use of insulin; Z79.899 Other long term (current) drug therapy
CPT/HCPCS: 43235; 70490; 71250; 74176; 82947; 99284; J2704; J7120; J3490